=== PATIENT | female | born 1985 | race Caucasian/White ===

== ENCOUNTER 2018-02-03 14:14 | Emergency (ER) | payer BC, MEDICAID ==
[2018-02-03] MEDS ORDERED: Ketorolac INJ* 30 MG/ML 1 ML VIAL IV ONE (15:55)
[2018-02-03] MEDS ORDERED: NS 0.9% 1000 ML* 1,000 ML IV ONE ×2 (15:55→17:12)
[2018-02-03] MEDS ORDERED: cefTRIAXone(*) 1 GM in NS 0.9% 50 ML* 50 ML IVPB ONE (15:57)
[2018-02-03] MEDS ORDERED: Acetaminophen TAB* 325 MG PO ONE (15:59)
[2018-02-03 16:18] LABS: ABS Basophils 0.1 10^3/ul (0-0.2); ABS Eosinophils 0 10^3/ul (0-0.6); ABS Lymphocytes 1.3 10^3/ul (1.0-4.8); ABS Monocytes 1.4 10^3/ul (0-0.8); ABS Neutrophils 12.3 10^3/ul (1.5-7.7); ABS Nucleated RBC 0 10^3/ul; Eosinophil % 0 % (0-6); Hematocrit 41 % (35-47); Hemoglobin 13.7 g/dl (12.0-16.0); Lymphocyte % 8.3 % (25-47); Mean Corpuscular HGB Conc 34 g/dl (31-36); Mean Corpuscular Hemoglobin 30 pg (27-31); Mean Corpuscular Volume 88 fL (80-97); Mean Platelet Volume 8.8 um3 (7.4-10.4); Nucleated Red Blood Cells % 0.1; Platelet Count 216 10^3/ul (150-450); Red Blood Count 4.64 10^6/ul (4.0-5.4); Red Cell Distribution Width 13 % (10.5-15)
[2018-02-03 16:27] LABS: Urine Appearance Cloudy; Urine Blood 2+ (Negative); Urine Color Yellow; Urine Ketones 2+ (Negative); Urine Protein 1+(30 mg/dL) (Negative); Urine Specific Gravity 1.018 (1.010-1.030); Urine Urobilinogen Negative (Negative)
--- NOTE | 2018-02-03 17:07 | RAD ---
CLINICAL HISTORY: Left flank pain, fever COMPARISON: July 27, 2009 TECHNIQUE: Multiple contiguous axial CT scans were obtained of the abdomen and pelvis, without intravenous contrast enhancement. Coronal and sagittal multiplanar reformations are submitted for review. Oral contrast was not administered. FINDINGS: The study is limited by the lack of intravenous contrast. This limits evaluation of the solid organs and vasculature. LUNG BASES: The lung bases are clear. LIVER: The liver is normal in shape, size, contour, and attenuation. BILE DUCTS: There is no intrahepatic or extrahepatic biliary dilatation. GALLBLADDER: The gallbladder is normal, without pericholecystic inflammatory change. PANCREAS: The pancreas is normal, without mass or ductal dilatation. SPLEEN: Normal in size and appearance. UPPER GI TRACT: Evaluation of the gastrointestinal tract is limited by incomplete gastric distention. The upper GI tract is unremarkable. SMALL BOWEL AND MESENTERY: The small bowel is normal in contour, course, and caliber. There is no obstruction or dilatation. COLON: The colon is normal in contour, course, caliber. There is no pericolonic inflammatory change. There is post surgical change along the cecum ADRENALS: Normal bilaterally. KIDNEYS: There is a punctate left renal calyceal stone along the lower pole measuring 0.2 cm. There is no appreciable ureteral stone or hydronephrosis. There is mild stranding of the perinephric fat. BLADDER: The bladder is incompletely distended but is grossly normal. PELVIC ORGANS: The uterus and adnexa are grossly normal for technique. AORTA: The aorta is normal. IVC: Unremarkable LYMPH NODES: There is no lymphadenopathy by size criteria. ABDOMINAL WALL: There is a small fat-containing ventral hernia. BONES AND SOFT TISSUES: Unremarkable OTHER: None IMPRESSION: 1. PUNCTATE NONOBSTRUCTING LEFT RENAL CALYCEAL STONE. 2. THERE IS MILD PERINEPHRIC STRANDING ON THE LEFT WHICH MAY REFLECT THE SEQUELA OF RECENTLY PASSED STONE OR UPPER URINARY TRACT INFECTION
[2018-02-03] MEDS ORDERED: Metoclopramide IV* 5 MG/ML 2 ML VIAL IV ONE (17:34)
[2018-02-03] MEDS ORDERED: diPHENhydraMINE IV* 50 MG/ML 1 ml VIAL (BENADRYL) IV ONE (17:34)
[2018-02-03 19:42] VITALS: BP 116/71
--- NOTE | 2018-02-03 20:56 | ED ---
Reji Choi Natalie, scribed for Ajay Valencia MD on 02/03/18 at 1601 . Abdominal Pain/Female - HPI Summary HPI Summary: The patient is a 32 y/o F presenting to the ED c/o fever and bilateral flank pain, and mid to low back pains starting three days ago. The pain is rated 7/10 in severity. Patient additionally c/o body aches and denies dysuria. LNMP was a few weeks ago. - History of Current Complaint Chief Complaint: EDFlankPain Stated Complaint: FEVER,BODY ACHES Time Seen by Provider: 02/03/18 14:21 Hx Obtained From: Patient Onset/Duration: Sudden Onset, Lasting Days, Still Present Timing: Constant Severity Initially: Moderate Severity Currently: Moderate Pain Intensity: 7 Pain Scale Used: 0-10 Numeric Location: Flank - bilateral Radiates: Yes Radiates to: Back - mid to low back Aggravating Factor(s): Nothing Alleviating Factor(s): Nothing Associated Signs and Symptoms: Positive: Negative - dysuria, Fever - 103.7F, Back Pain Allergies/Adverse Reactions: Allergies Allergy/AdvReac Type Severity Reaction Status Date / Time No Known Allergies Allergy Verified 11/21/13 11:07 Home Medications: Home Medications ALPRAZolam TAB* [Xanax TAB*] 0.25 mg PO BID PRN 02/03/18 [History Confirmed ] Desloratidine (NF) [Clarinex (NF)] 5 mg PO QPM 02/03/18 [History Confirmed 02/03] PMH/Surg Hx/FS Hx/Imm Hx Endocrine/Hematology History: Denies: Hx Diabetes Cardiovascular History: Denies: Hx Hypertension Infectious Disease History: No Infectious Disease History: Denies: Traveled Outside the [place] in Last 30 Days - Family History Known Family History: Negative: Cardiac Disease - Social History Alcohol Use: Occasionally Substance Use Type: Reports: None Review of Systems Positive: Fever - 103.7F, Other - body aches Positive: Abdominal Pain - bilateral flank Negative: dysuria Positive: Other - mid to low back pain All Other Systems Reviewed And Are Negative: Yes Physical Exam - Summary Physical Exam Summary: VITAL SIGNS: Reviewed. GENERAL: Patient is a well-developed and nourished female who is in mild distress secondary to back pain. Patient is not in any acute respiratory distress. She seems to be febrile. HEAD AND FACE: Normocephalic and atraumatic. EYES: PERRLA, EOMI x 2, No injected conjunctiva. EARS: Hearing grossly intact. Ear canals and tympanic membranes are WNL. MOUTH: Oropharynx within normal limits. NECK: Supple, trachea is midline, no adenopathy, no JVD. CHEST: Symmetric, no tenderness at palpation LUNGS: Clear to auscultation bilaterally. No wheezing or crackles. CVS: RRR, S1 and S2 present, no murmurs or gallops appreciated. ABDOMEN: Soft. Some tenderness in bilateral flank. No signs of distention. Positive bowel sounds. No rebound no guarding, and no masses palpated. No abdominal bruit or pulsations. EXTREMITIES: FROM in all major joints, no edema, no cyanosis or clubbing. NEURO: Alert and oriented x 3. No acute neurological deficits. Speech is normal. SKIN: Dry and warm Triage Information Reviewed: Yes Vital Signs On Initial Exam: Initial Vitals Temp Pulse Resp BP Pulse Ox 100.4 F 137 18 123/83 100 02/03/18 14:17 02/03/18 14:17 02/03/18 14:17 02/03/18 14:17 02/03/18 14:17 Vital Signs Reviewed: Yes Diagnostics - Vital Signs Vital Signs Temp Pulse Resp BP Pulse Ox 02/03/18 14:17 100.4 F 137 18 123/83 100 - Laboratory Lab Results: Lab Results 02/03/18 02/03/18 02/03/18 Range/Units 16:03 16:09 16:09 WBC 15.0 H (3.5-10.8) 10^3/ul RBC 4.64 (4.0-5.4) 10^6/ul Hgb 13.7 (12.0-16.0) g/dl Hct 41 (35-47) % MCV 88 (80-97) fL MCH 30 (27-31) pg MCHC 34 (31-36) g/dl RDW 13 (10.5-15) % Plt Count 216 (150-450) 10^3/ul MPV 8.8 (7.4-10.4) um3 Neut % (Auto) 82.2 (38-83) % Lymph % (Auto) 8.3 L (25-47) % Fisher % (Auto) 9.2 H (0-7) % Eos % (Auto) 0 (0-6) % Baso % (Auto) 0.3 (0-2) % Absolute Neuts (auto) 12.3 H (1.5-7.7) 10^3/ul Absolute Lymphs (auto) 1.3 (1.0-4.8) 10^3/ul Absolute Monos (auto) 1.4 H (0-0.8) 10^3/ul Absolute Eos (auto) 0 (0-0.6) 10^3/ul Absolute Basos (auto) 0.1 (0-0.2) 10^3/ul Absolute Nucleated RBC 0 10^3/ul Nucleated RBC % 0.1 Sodium 134 L (139-145) mmol/L Potassium 3.5 (3.5-5.0) mmol/L Chloride 98 L (101-111) mmol/L Carbon Dioxide 27 (22-32) mmol/L Anion Gap 9 (2-11) mmol/L BUN 10 (6-24) mg/dL Creatinine 0.89 (0.51-0.95) mg/dL Est GFR ( Amer) 93.9 (>60) Est GFR (Non-Af Amer) 73.0 (>60) BUN/Creatinine Ratio 11.2 (8-20) Glucose 101 H (70-100) mg/dL Lactic Acid (0.5-2.0) mmol/L Calcium 9.3 (8.6-10.3) mg/dL Total Bilirubin 0.50 (0.2-1.0) mg/dL AST 20 (13-39) U/L ALT 18 (7-52) U/L Alkaline Phosphatase 58 (34-104) U/L C-Reactive Protein 120.43 H (< 5.00) mg/L Total Protein 8.0 (6.4-8.9) g/dL Albumin 4.5 (3.2-5.2) g/dL Globulin 3.5 (2-4) g/dL Albumin/Globulin Ratio 1.3 (1-3) Lipase 11 (11.0-82.0) U/L Beta HCG, Quant < 0.60 mIU/mL Urine Color Yellow Urine Appearance Cloudy Urine pH 5.0 (5-9) Ur Specific [place] 1.018 (1.010-1.030) Urine Protein 1+(30 mg/dl) A (Negative) Urine Ketones 2+ A (Negative) Urine Blood 2+ A (Negative) Urine Nitrate Positive A (Negative) Urine Bilirubin Negative (Negative) Urine Urobilinogen Negative (Negative) Ur Leukocyte Esterase 3+ A (Negative) Urine WBC (Auto) 3+(>20/hpf) A (Absent) Urine RBC (Auto) 3+(>10/hpf) A (Absent) Ur Squamous Epith Cells Present A (Absent) Ur Renal Epithelial Cell Present A (Absent) Urine Bacteria Absent (Absent) Urine Glucose Negative (Negative) 02/03/18 Range/Units 16:09 WBC (3.5-10.8) 10^3/ul RBC (4.0-5.4) 10^6/ul Hgb (12.0-16.0) g/dl Hct (35-47) % MCV (80-97) fL MCH (27-31) pg MCHC (31-36) g/dl RDW (10.5-15) % Plt Count (150-450) 10^3/ul MPV (7.4-10.4) um3 Neut % (Auto) (38-83) % Lymph % (Auto) (25-47) % Fisher % (Auto) (0-7) % Eos % (Auto) (0-6) % Baso % (Auto) (0-2) % Absolute Neuts (auto) (1.5-7.7) 10^3/ul Absolute Lymphs (auto) (1.0-4.8) 10^3/ul Absolute Monos (auto) (0-0.8) 10^3/ul Absolute Eos (auto) (0-0.6) 10^3/ul Absolute Basos (auto) (0-0.2) 10^3/ul Absolute Nucleated RBC 10^3/ul Nucleated RBC % Sodium (139-145) mmol/L Potassium (3.5-5.0) mmol/L Chloride (101-111) mmol/L Carbon Dioxide (22-32) mmol/L Anion Gap (2-11) mmol/L BUN (6-24) mg/dL Creatinine (0.51-0.95) mg/dL Est GFR ( Amer) (>60) Est GFR (Non-Af Amer) (>60) BUN/Creatinine Ratio (8-20) Glucose (70-100) mg/dL Lactic Acid 0.9 (0.5-2.0) mmol/L Calcium (8.6-10.3) mg/dL Total Bilirubin (0.2-1.0) mg/dL AST (13-39) U/L ALT (7-52) U/L Alkaline Phosphatase (34-104) U/L C-Reactive Protein (< 5.00) mg/L Total Protein (6.4-8.9) g/dL Albumin (3.2-5.2) g/dL Globulin (2-4) g/dL Albumin/Globulin Ratio (1-3) Lipase (11.0-82.0) U/L Beta HCG, Quant mIU/mL Urine Color Urine Appearance Urine pH (5-9) Ur Specific [place] (1.010-1.030) Urine Protein (Negative) Urine Ketones (Negative) Urine Blood (Negative) Urine Nitrate (Negative) Urine Bilirubin (Negative) Urine Urobilinogen (Negative) Ur Leukocyte Esterase (Negative) Urine WBC (Auto) (Absent) Urine RBC (Auto) (Absent) Ur Squamous Epith Cells (Absent) Ur Renal Epithelial Cell (Absent) Urine Bacteria (Absent) Urine Glucose (Negative) Result Diagrams: 02/03/18 16:09 02/03/18 16:09 Lab Statement: Any lab studies that have been ordered have been reviewed, and results considered in the medical decision making process. - CT Abdomen/Pelvis CT CT Interpretation: Positive (See Comments) - 1. Punctate nonobstructing left renal calyceal stone. 2. There is mild perinephric stranding on the left which may reflect the sequela of recently passed stone or upper urinary tract infection. ED physician has reviewed this report. CT Interpretation Completed By: Radiologist Abdominal Pain Fem Course/Dx - Course Course Of Treatment: This patient is a 32-year-old female who presents to the emergency department with chief complaint of having bilateral upper back pain, with radiation to the flanks, fevers and UTI symptoms. She reports urinary frequency, and urgency. Positive nausea without vomiting. In the ED course the patient was given IV fluids, Tylenol for fever and Toradol for the pain. The patient also was given Rocephin 1 gm sunce I believe the patient has a UTI/ pyelonephritis. Blood cultures results shows WBCs of 15, sodium of 134, glucose of 101. Urinalysis positive for UTI. Abdominopelvic CT impression: Punctate nonobstructing left renal calyceal stone. Mild perinephric stranding of the left which may reflect the sequela of recent passed stone or upper urinary tract infection. After the patient was given hydration, Tylenol and Toradol as well as the Rocephin for her symptoms have resolved. The patient is afebrile, she denies any back pain, denies any nausea or vomiting. Therefore I feel comfortable sending the patient home with antibiotics. I discussed all the findings and test results with the patient. Patient was instructed to return to the emergency room immediately if any of the symptoms return or worsens. Plan of care was discussed with the patient and understands and agrees. All questions were answered at patient satisfaction. There were no further complaints or concerns. Lung exam before discharge: CTA B/L. Good air exchange. No wheezing or crackles heard. CVS: S1 and S2 present. No murmurs appreciated. Patient is alert and oriented x 3. Patient is hemodynamically stable. Patient will be discharged home with follow up PCP in the next 2-3 days - Diagnoses Provider Diagnoses: Pyelonephritis, UTI (urinary tract infection) Discharge - Sign-Out/Discharge Documenting (check all that apply): Discharge/Admit/Transfer - Discharge Plan Condition: Stable Disposition: HOME Prescriptions: Ciprofloxacin TAB* [Cipro 500 MG TAB*] 500 mg PO BID #10 tab Patient Education Materials: Hydronephrosis (ED) Referrals: Melany Valiente NP [Primary Care Provider] - Additional Instructions: Please take medications as prescribed. FOLLOW UP WITH YOUR PRIMARY CARE PROVIDER WITHIN ONE WEEK. RETURN TO THE ED FOR ANY WORSENING OR NEW SYMPTOMS. - Billing Disposition and Condition Condition: STABLE Disposition: HOME The documentation as recorded by the Reji donis Natalie accurately reflects the service I personally performed and the decisions made by me, Ajay Valencia MD.
== END 2018-02-03 19:40 | disposition home or self-care (01) ==
LOC: ED 14:14
DX: N12 Tubulo-interstitial nephritis, not specified as acute or chronic (principal); N39.0 Urinary tract infection, site not specified
CPT/HCPCS: 36415; 74176; 80053; 81003; 81015; 83605; 83690; 84702; 85025; 86140; 87040; 87077; 87086; 87186; 96374; 96375; 99284; A9270-GY; J0696; J1200; J1885; J2765

== ENCOUNTER 2018-02-04 10:45 | Emergency (ER) | payer BC ==
[2018-02-04] MEDS ORDERED: cefTRIAXone(*) 1 GM in NS 0.9% 50 ML* 50 ML IVPB ONE (11:02)
[2018-02-04] MEDS ORDERED: NS 0.9% 1000 ML* 1,000 ML IV ONE (11:03)
[2018-02-04 11:14] LABS: ABS Basophils 0 10^3/ul (0-0.2); ABS Eosinophils 0 10^3/ul (0-0.6); ABS Lymphocytes 1.4 10^3/ul (1.0-4.8); ABS Monocytes 1.1 10^3/ul (0-0.8); ABS Neutrophils 8.7 10^3/ul (1.5-7.7); ABS Nucleated RBC 0 10^3/ul; Eosinophil % 0.1 % (0-6); Hematocrit 35 % (35-47); Hemoglobin 11.6 g/dl (12.0-16.0); Lymphocyte % 12.3 % (25-47); Mean Corpuscular HGB Conc 33 g/dl (31-36); Mean Corpuscular Hemoglobin 29 pg (27-31); Mean Corpuscular Volume 88 fL (80-97); Mean Platelet Volume 8.6 um3 (7.4-10.4); Nucleated Red Blood Cells % 0; Platelet Count 199 10^3/ul (150-450); Red Blood Count 3.97 10^6/ul (4.0-5.4); Red Cell Distribution Width 13 % (10.5-15); White Blood Count 11.3 10^3/ul (3.5-10.8)
[2018-02-04] MEDS ORDERED: Ketorolac INJ* 30 MG/ML 1 ML VIAL IV PUSH ONE (11:29)
[2018-02-04 14:18] VITALS: BP 111/75
--- NOTE | 2018-02-05 08:50 | ED ---
Abdominal Pain/Female - HPI Summary HPI Summary: Patient returns to the ED within 24 hours with same complaint as yesterday. Yesterday diagnosed with pyelonephritis and given prescription for ciprofloxacin. She states she was unable to fill the antibiotic yesterday so returns today. She did state she filled it this morning but has not taken her first dose. She denies any worsening symptoms, just states they are remaining stable. Denies any nausea vomiting at this time. She has been taking ibuprofen and Tylenol. LMP several weeks ago. Denies chance of . - History of Current Complaint Chief Complaint: EDFlankPain Stated Complaint: ABD/BACK PAIN Time Seen by Provider: 02/04/18 10:58 Hx Obtained From: Patient ?: No Onset/Duration: Sudden Onset Timing: Constant Severity Initially: Moderate Severity Currently: Moderate Pain Intensity: 4 Pain Scale Used: 0-10 Numeric Location: Flank Radiates: Yes Radiates to: LLQ Character: Dull Aggravating Factor(s): Nothing Alleviating Factor(s): Nothing Associated Signs and Symptoms: Positive: Urinary Symptoms, Nausea. Negative: Diaphoresis, Fever, Cough, Chest Pain, Constipation, Blood in Stool - Risk Factors Ectopic Risk Factor: Negative Ovarian Torsion Risk Factor: Reproductive Age Allergies/Adverse Reactions: Allergies Allergy/AdvReac Type Severity Reaction Status Date / Time No Known Allergies Allergy Verified 02/04/18 10:54 PMH/Surg Hx/FS Hx/Imm Hx Previously Healthy: Yes Endocrine/Hematology History: Denies: Hx Diabetes Cardiovascular History: Denies: Hx Hypertension - Surgical History Surgery Procedure, Year, and Place: appendectomy - Immunization History Hx Pertussis Vaccination: No Immunizations Up to Date: Unable to Obtain/Confirm Infectious Disease History: No Infectious Disease History: Denies: Traveled Outside the [place] in Last 30 Days - Family History Known Family History: Negative: Cardiac Disease - Social History Occupation: Employed Full-time Lives: With Family Alcohol Use: Occasionally Hx Substance Use: No Substance Use Type: Reports: None Hx Tobacco Use: No Smoking Status (MU): Never Smoked Tobacco Review of Systems Constitutional: Negative Negative: Fever, Chills, Fatigue Negative: Palpitations, Chest Pain Negative: Shortness Of Breath, Cough Positive: Abdominal Pain - left lower quadrant, Nausea. Negative: Vomiting, Diarrhea Negative: Arthralgia, Myalgia Skin: Negative Neurological: Negative All Other Systems Reviewed And Are Negative: Yes Physical Exam Triage Information Reviewed: Yes Vital Signs On Initial Exam: Initial Vitals Temp Pulse Resp BP Pulse Ox 97.6 F 101 14 126/81 98 02/04/18 10:54 02/04/18 10:54 02/04/18 10:54 02/04/18 10:54 02/04/18 10:54 Vital Signs Reviewed: Yes Appearance: Positive: Well-Appearing, Well-Nourished Skin: Positive: Warm, Skin Color Reflects Adequate Perfusion Head/Face: Positive: Normal Head/Face Inspection Eyes: Positive: EOMI, SHAUN, Conjunctiva Clear Neck: Positive: No Lymphadenopathy Respiratory/Lung Sounds: Positive: Clear to Auscultation, Breath Sounds Present Cardiovascular: Positive: RRR, Pulses are Symmetrical in both Upper and Lower Extremities Abdomen Description: Positive: Soft, Other: - tenderness to left upper quadrant radiating from back Neurological: Positive: Sensory/Motor Intact, Alert, Oriented to Person Place, Time, Speech Normal Psychiatric: Positive: Normal Diagnostics - Vital Signs Vital Signs Temp Pulse Resp BP Pulse Ox 02/04/18 12:28 98.3 F 77 16 111/75 97 02/04/18 10:54 97.6 F 101 14 126/81 98 - Laboratory Lab Results: Lab Results 02/04/18 02/04/18 02/04/18 Range/Units 11:05 11:05 11:05 WBC 11.3 H (3.5-10.8) 10^3/ul RBC 3.97 L (4.0-5.4) 10^6/ul Hgb 11.6 L (12.0-16.0) g/dl Hct 35 (35-47) % MCV 88 (80-97) fL MCH 29 (27-31) pg MCHC 33 (31-36) g/dl RDW 13 (10.5-15) % Plt Count 199 (150-450) 10^3/ul MPV 8.6 (7.4-10.4) um3 Neut % (Auto) 77.4 (38-83) % Lymph % (Auto) 12.3 L (25-47) % [place]ell % (Auto) 9.8 H (0-7) % Eos % (Auto) 0.1 (0-6) % Baso % (Auto) 0.4 (0-2) % Absolute Neuts (auto) 8.7 H (1.5-7.7) 10^3/ul Absolute Lymphs (auto) 1.4 (1.0-4.8) 10^3/ul Absolute Monos (auto) 1.1 H (0-0.8) 10^3/ul Absolute Eos (auto) 0 (0-0.6) 10^3/ul Absolute Basos (auto) 0 (0-0.2) 10^3/ul Absolute Nucleated RBC 0 10^3/ul Nucleated RBC % 0 Sodium 136 L (139-145) mmol/L Potassium 3.7 (3.5-5.0) mmol/L Chloride 105 (101-111) mmol/L Carbon Dioxide 25 (22-32) mmol/L Anion Gap 6 (2-11) mmol/L BUN 6 (6-24) mg/dL Creatinine 0.61 (0.51-0.95) mg/dL Est GFR ( Amer) 145.3 (>60) Est GFR (Non-Af Amer) 113.0 (>60) BUN/Creatinine Ratio 9.8 (8-20) Glucose 89 (70-100) mg/dL Lactic Acid 0.7 (0.5-2.0) mmol/L Calcium 8.8 (8.6-10.3) mg/dL Magnesium 1.6 L (1.9-2.7) mg/dL Total Bilirubin 0.40 (0.2-1.0) mg/dL AST 18 (13-39) U/L ALT 16 (7-52) U/L Alkaline Phosphatase 56 (34-104) U/L C-Reactive Protein 161.15 H (< 5.00) mg/L Total Protein 6.7 (6.4-8.9) g/dL Albumin 3.7 (3.2-5.2) g/dL Globulin 3.0 (2-4) g/dL Albumin/Globulin Ratio 1.2 (1-3) Lipase < 10 L (11.0-82.0) U/L Result Diagrams: 02/04/18 11:05 02/04/18 11:05 Lab Statement: Any lab studies that have been ordered have been reviewed, and results considered in the medical decision making process. Abdominal Pain Fem Course/Dx - Course Course Of Treatment: During the course of treatment as the patient was recently seen in our clinic yesterday and diagnosed with pyelonephritis, labs were obtained to assess for worsening infection as patient has not filled her Cipro prescription at this time. She does not appear to be dehydrated, white blood cell count is 11 compared to her 15 WBC yesterday. She is afebrile with other vital signs stable. Discussed case with Dr. Valencia. Again she is diagnosed with pyelonephritis, with no worsening complications or evidence of urosepsis. Rocephin given in ED. 1 L fluids given in the ED. I have stated the left- sided flank pain radiating over to the left kidney is due to her current infection. She will begin her Cipro dose tonight and return to the ED for any worsening symptoms. - Diagnoses Differential Diagnosis: Positive: Urinary Tract Infection Provider Diagnoses: Pyelonephritis Discharge - Sign-Out/Discharge Documenting (check all that apply): Discharge/Admit/Transfer - Discharge Plan Condition: Stable Disposition: HOME Forms: *Work Release Referrals: Melany Valiente NP [Primary Care Provider] - Additional Instructions: Start your at home medications. Take first dose of cipro this evening Continue with tylenol and ibuprofen intermittently for pain and fevers - Billing Disposition and Condition Condition: STABLE Disposition: HOME
--- NOTE | 2018-02-05 08:57 | PN ---
Progress Note - Progress Note Date of Service: 02/03/18 Note: Urine culture preliminary grew Escherichia coli 100,000 Patient was placed on Cipro for pyelonephritis prior to discharge She returned the next day without taking her antibiotic dose and given Rocephin IV in the ED Vital signs were stable and WBC had improved She was encouraged to take Cipro first dose that evening. Cipro likely will cover Escherichia coli Nothing further at this time Graciela Hurley, PAC
--- NOTE | 2018-02-06 06:53 | PN ---
Progress Note - Progress Note Date of Service: 02/03/18 Note: Pt. seen in ER 02/03 and dx with pyelonephritis. Was started on Cipro. Urine culture today is growing greater than 100,000 Escherichia coli susceptible to Cipro. No change in treatment plan.
== END 2018-02-04 12:28 | disposition home or self-care (01) ==
LOC: ED 10:45
DX: N12 Tubulo-interstitial nephritis, not specified as acute or chronic (principal); B96.20 Unspecified Escherichia coli [E. coli] as the cause of diseases classified elsewhere
CPT/HCPCS: 36415; 80053; 83605; 83690; 83735; 85025; 86140; 96361; 96374; 96375; 99283; J0696; J1885

== ENCOUNTER 2019-11-16 16:12 | Emergency (ER) | payer BC ==
[2019-11-16 16:26] VITALS: BP 116/73
--- NOTE | 2019-11-16 16:41 | ED ---
Throat Pain/Nasal Congestion - HPI Summary HPI Summary: 34 yo WF p/w sore throat x 3 days associated with mild sinus pains radiating to right ear x 3 days, denies cough,f/c - History of Current Complaint Chief Complaint: UCGeneralIllness Time Seen by Provider: 11/16/19 16:14 Hx Obtained From: Patient Onset/Duration: Sudden Onset Severity: Moderate Associated Signs And Symptoms: Positive: Negative Cough: None - Epiglottits Risk Factors Epiglottis Risk Factors: Negative - Allergies/Home Medications Allergies/Adverse Reactions: Allergies Allergy/AdvReac Type Severity Reaction Status Date / Time No Known Allergies Allergy Verified 11/16/19 16:26 Home Medications: Home Medications ALPRAZolam TAB* [Xanax TAB*] 0.25 mg PO BID PRN 02/03/18 [History Confirmed 03/30] Desloratidine (NF) [Clarinex (NF)] 5 mg PO QPM 02/03/18 [History Confirmed 11/15] Amoxicillin/Clavulanate TAB* [Augmentin TAB 875*] 875 mg PO BID 7 Days #14 tab 11/16/19 [Rx] Oral Contraceptive DAILY 11/16/19 [History] PMH/Surg Hx/FS Hx/Imm Hx Previously Healthy: Yes Endocrine/Hematology History: Denies: Hx Diabetes Cardiovascular History: Denies: Hx Hypertension - Surgical History Surgery Procedure, Year, and Place: appendectomy Infectious Disease History: No Infectious Disease History: Denies: Traveled Outside the [place] in Last 30 Days - Family History Known Family History: Negative: Cardiac Disease - Social History Alcohol Use: Occasionally Hx Substance Use: No Substance Use Type: Reports: None Hx Tobacco Use: No Smoking Status (MU): Light Every Day Tobacco Smoker Review of Systems Constitutional: Negative Eyes: Negative ENT: Other - swollen glands Positive: Sore Throat. Negative: Nasal Discharge Cardiovascular: Negative Respiratory: Negative Gastrointestinal: Negative Genitourinary: Negative Musculoskeletal: Negative Skin: Negative Neurological/Mental Status: Negative Psychological: Normal All Other Systems Reviewed And Are Negative: Yes Physical Exam - Summary Physical Exam Summary: Vital Signs Reviewed: Yes Appearance: Positive: No Pain Distress Skin: Positive: Warm Head/Face: Positive: Normal Head/Face Inspection Eyes: Positive: Normal ENT: Positive: Faint exudates and swelling in left tonsil>R Dental: + B/L Cervical Lymphadenopathy Neck: Positive: Supple Respiratory/Lung Sounds: Positive: Clear to Auscultation Cardiovascular: Positive: Normal, RRR, S1, S2 Abdomen Description: Positive: Nontender Musculoskeletal: Positive: Normal Neurological: Positive: Normal Psychiatric: Positive: Normal Triage Information Reviewed: Yes Vital Signs On Initial Exam: Initial Vitals Temp Pulse Resp BP Pulse Ox 37.1 C 72 16 116/73 100 11/16/19 16:22 11/16/19 16:22 11/16/19 16:22 11/16/19 16:22 11/16/19 16:22 Diagnostics - Vital Signs Vital Signs Temp Pulse Resp BP Pulse Ox 11/16/19 16:22 37.1 C 72 16 116/73 100 - Laboratory Lab Statement: Any lab studies that have been ordered have been reviewed, and results considered in the medical decision making process. EENT Course/Dx - Course Assessment/Plan: Rapid strep neg, but will tx empirically for exudative pharyngitis with Augmentin 875 BID x 7 days - Diagnoses Provider Diagnoses: Pharyngitis Discharge ED - Sign-Out/Discharge Documenting (check all that apply): Patient Departure All imaging exams completed and their final reports reviewed: No Studies - Discharge Plan Condition: Stable Disposition: HOME Prescriptions: Amoxicillin/Clavulanate TAB* [Augmentin TAB 875*] 875 mg PO BID 7 Days #14 tab Patient Education Materials: Pharyngitis (ED) Referrals: Melany Valiente NP [Primary Care Provider] - - Billing Disposition and Condition Condition: STABLE Disposition: Home
[2019-11-16] MEDS ORDERED: Amoxicillin/Clavulanate TAB* 875 MG PO ONE (17:18)
== END 2019-11-16 17:25 | disposition home or self-care (01) ==
LOC: UCCORT 16:12
DX: J02.9 Acute pharyngitis, unspecified (principal); F17.290 Nicotine dependence, other tobacco product, uncomplicated
CPT/HCPCS: 87651; 99212; G0463